=== PATIENT | male | born 1995 | race Caucasian/White ===

== ENCOUNTER 2023-11-18 17:35 | Emergency (ER) | payer OTHER, SELFPAY ==
--- NOTE | ~2023-11-18 | XR_ITS ---
EXAM: XR ribs RT 2V DATE: 11/18/2023 18:21 HISTORY: right posterior lower rib pain after a fall down steps . COMPARISON: None available. FINDINGS: Normal mineralization. Visualized lung parenchyma is clear. Nondisplaced posterior 12th ri b fracture. No other fracture detected. Mild spinal asymmetry. IMPRESSION: Nondisplaced right posterior rib fracture. Reviewed, dictated and finalized at location [facility]. [facility] TECHNICIAN
[2023-11-18 18:01] VITALS: BP 145/75; PULSE 92; RESP 18; TEMP 36.8; O2SAT 99
[2023-11-18 18:03] VITALS: BP 145/75; PULSE 92; RESP 18; TEMP 36.8; O2SAT 99
--- NOTE | 2023-11-18 18:18 | ED.FALL ---
HPI - Fall General Chief Complaint: Back Pain/Injury Stated Complaint: fall, back and rib pain Time Seen by Provider: 11/18/23 18:18 Source: patient Mode of arrival: ambulatory Limitations: no limitations History of Present Illness HPI Narrative: Patient is a 20-year-old male who presents with right mid and lower back pain after falling down 4 steps approximately 3 hours ago. Patient denies hitting head or LOC. Denies any numbness, tingling or weakness to lower extremities. Denies any loss of bowel or bladder. Related Data Allergies Allergy/AdvReac Type Severity Reaction Status Date / Time No Known Allergies Allergy Verified 11/18/23 18:02 Review of Systems Review of Systems: All systems reviewed & are unremarkable except as noted in HPI and below Constitutional: Constitutional: Denies body ache(s), Denies chills, Denies fatigue, Denies fever(s), Denies headache(s), Denies malaise and Denies weakness Eyes: Eyes: Denies blurry vision, Denies irritation and Denies loss of vision ENT: Denies otalgia, Denies headache(s), Denies nasal discharge, Denies sinus pain and Denies sore throat Cardiovascular: Cardiovascular: Denies chest pain, Denies irregular heart rhythm and Denies dyspnea Respiratory: Respiratory: Denies dyspnea Gastrointestinal: Gastrointestinal: Denies abdominal pain, Denies melena, Denies hematochezia, Denies diarrhea, Denies nausea and Denies vomiting Musculoskeletal: Musculoskeletal: Reports back pain, Denies myalgias and Denies arthralgias Integumentary/Breasts: Skin/Breast: Denies pruritus and Denies rash Neurologic: Denies headache(s), Denies loss of vision and Denies weakness Psychiatric: Psychiatric: Reports no additional psychiatric complaints Endocrine: Endocrine: Denies fatigue PMFSH Comments At time of signature, agree with nursing past medical, surgical, social and family history. There is no relevant family history pertinent to the presenting complaint. Exam Const: General: cooperative, healthy appearing, comfortable, no acute distress and well nourished Nutritional Appearance: well nourished Orientation/consciousness: patient oriented x3 Limitations: no limitations HENMT: Head: normal to inspection, normocephalic and atraumatic Ears: hearing grossly normal bilaterally and external ears normal Face/Nose/Sinus: Normal external nose present, normal facial exam and face symmetric Face and sinus: normal facial exam and face symmetric Mouth: Yes lip normal Eyes: General: appearance normal, both eyes and all related structures Alignment and Position: alignment normal and position normal Periorbital: periorbital findings normal Eyelids: eyelids normal Pupils: Equal, round and reactive pupils present EOM: EOMs intact bilaterally Neck: Neck: normal visual inspection, full ROM and supple Chest: Chest palpation & inspection: normal inspection of the chest and tenderness rib right mid-scapular line involving the 10th rib, involving the 11th rib and involving the 12th rib Resp: Effort & Inspection: normal respiratory effort and able to speak in complete sentences Auscultation: clear to auscultation bilaterally Cardio: Rate: regular rate Rhythm: regular rhythm Heart sounds: S1 normal heart sound present and S2 normal heart sound present GI: Inspection: normal to inspection Skin: General skin exam: normal color and no rashes or lesions noted Neuro: General: patient oriented x3 and moves all extremities Cranial nerves: Yes Equal, round and reactive pupils present Speech: normal speech Gait exam (Neuro): Normal gait present Extrem: General: normal to inspection, full ROM and no edema Psych: Appearance: grossly normal and well kempt Mental Status: mental status grossly normal Speech and movement: Normal speech and movement present Affect: normal affect Attitude: cooperative Thought process: Normal thought process present Course Course Emergency Course: Patient is aware of diagno
== END 2023-11-18 18:52 | disposition home or self-care (01) ==
PROVIDERS: Emergency Provider Nurse Practitioner Family
DX: S22.31XA Fracture of one rib, right side, initial encounter for closed fracture (principal); W10.9XXA Fall (on) (from) unspecified stairs and steps, initial encounter
CPT/HCPCS: 71100; 99203; G0463

== ENCOUNTER 2024-03-05 21:00 | Emergency (ER) | payer OTHER, SELFPAY ==
--- NOTE | ~2024-03-05 | CT_ITS ---
CT of the Abdomen and Pelvis: Indication: Abdominal pain Technique: 2.5 mm axial scans were obtained through the abdomen and pelvis following intravenous adm inistration of 100 cc of Omnipaque 350. Dose reduction technique was used on this scan by utilizing a utomated exposure control and iterative reconstruction technique. The dose-length product (DLP) was 5 02.12 mGy-cm. Findings: Scans through the lung bases are unremarkable. The liver, spleen, pancreas, gallbladder, adrenals and kidneys are within normal limits. No evidence of aortic aneurysm. No lymphadenopathy. Probable mild wall thickening of the descending colon, which could reflect infectious/inflammatory co litis. No bowel obstruction. No abscess or free air. There is no evidence to suggest acute appendicit is. Images through the pelvis were performed. Urinary bladder unremarkable. No pelvic mass seen. No ascit es. Impression: Probable infectious/inflammatory colitis of the descending colon. Reviewed, dictated and finalized at [facility]. Impression: Probable infectious/inflammatory colitis of the descending colon.
[2024-03-05 21:15] VITALS: BP 115/75; PULSE 85; RESP 18; TEMP 36.7; O2SAT 98
--- NOTE | 2024-03-05 21:50 | ED.GENADULT ---
HPI - General Adult General Chief complaint: Abdominal Pain Stated complaint: abd pain Time Seen by Provider: 03/05/24 21:05 History of Present Illness HPI narrative: This is a 28-year-old male presenting with 4 hours of constipation the patient says that with the bathroom starting 6:00 p.m.. He then developed sharp pain his lower abdomen that radiated to his groin/penis. No testicle pain. He has not been able have a bowel movement but he has been passing gas. He denies urinary symptoms or concern for STDs. He says that he has had pain similar to this 10 times before and usually resolves on his own he does not see a doctor. Patient says he had some nausea but no vomiting. No abdominal surgeries. Patient is requesting a CT scan to make sure nothing seriously wrong. Related Data Allergies Allergy/AdvReac Type Severity Reaction Status Date / Time No Known Allergies Allergy Verified 11/18/23 18:02 Exam Narrative: APPEARANCE: No apparent distress. Head: atraumatic. EYES: EOMI, NOSE: Atraumatic NECK: Trachea midline RESPIRATORY: No increased rate of breathing, CTAB CARDIOVASCULAR: RRR, ABDOMINAL: Non-distended , soft nontender no guarding or rebound Rectal exam: No blood per rectum, no tenderness to the prostate MUSCULOSKELETAl: No obvious deformities NEURO: Alert. Moving 4/4 extremities SKIN:: Warm, dry. Normal color PSYCHIATRIC: Normal affect Course Vital Signs Vital signs: Vital Signs Temperature 98.1 F 03/05/24 21:15 Pulse Rate 85 03/05/24 21:15 Respiratory Rate 18 03/05/24 21:15 Blood Pressure 115/75 03/05/24 21:15 Pulse Oximetry 98 03/05/24 21:15 Oxygen Delivery Room Air 03/05/24 21:15 Temperature 98.1 F 03/05/24 21:15 Pulse Rate 85 03/05/24 21:15 Respiratory Rate 18 03/05/24 21:15 Blood Pressure 115/75 03/05/24 21:15 Pulse Oximetry 98 03/05/24 21:15 Oxygen Delivery Room Air 03/05/24 21:15 Medical Decision Making [facility] Narrative Medical decision making narrative: -Course: 28-year-old male presenting 4 hours of abdominal pain. Vital signs stable. Abdominal exam benign. Laboratory studies unremarkable. Patient is requesting discharge before his CT is been read by Radiology. He says he will check his results online. Patient left the emergency department. -DDX includes but is not limited to: Constipation, colonic spasm, colitis diverticulitis prostatitis -Co-morbidities complicating care: history of constipation appendectomy -Social determinants of health: works in [employer] -Independent interpretation of studies: labs reviewed CT pending with patient left the emergency department -Interventions: 1 L ns -Shared decision making / Disposition: discharged -RX Metamucil, bentyl Vital Signs Vital Signs: Vital Signs Temperature 98.1 F 03/05/24 21:15 Pulse Rate 85 03/05/24 21:15 Respiratory Rate 18 03/05/24 21:15 Blood Pressure 115/75 03/05/24 21:15 Pulse Oximetry 98 03/05/24 21:15 Oxygen Delivery Room Air 03/05/24 21:15 Temperature 98.1 F 03/05/24 21:15 Pulse Rate 85 03/05/24 21:15 Respiratory Rate 18 03/05/24 21:15 Blood Pressure 115/75 03/05/24 21:15 Pulse Oximetry 98 03/05/24 21:15 Oxygen Delivery Room Air 03/05/24 21:15 Lab Data 03/05/24 22:20 03/05/24 22:20 Labs: Lab Results 03/05/24 03/05/24 Range/Units 22:20 22:25 WBC 12.0 H (4.5-10.0) K/mm3 RBC 5.02 (4.6-6.20) M/mm3 Hgb 15.5 (14.0-18.0) g/dL Hct 44.7 (42.0-52.0) % MCV 89.0 (80-100) fl MCH 30.9 (26-34) pg MCHC 34.7 (32-36) g/dl RDW 12.0 (11.5-14.5) % Plt Count 269 (150-375) k/mm3 MPV 11.0 H (7.4-10.4) fl Immature Gran % (Auto) 0.4 (0-0.5) % Neut % (Auto) 76.7 H (45.5-73.1) % Lymph % (Auto) 15.7 L (18.3-44.2) % Mineral % (Auto) 5.5 (2.6-8.5) % Eos % (Auto) 1.2 (0-4.4) % Baso % (Auto) 0.5 (0.2-1.2) % Lymph # (Auto) 1.88 (0.9-3.2) K
[2024-03-05] MEDS: SODIUM CHLORIDE 0.9% IV 1,000 ML 999 ML IV CONT (22:25)
[2024-03-05 22:28] LABS: Basophils Absolute Auto 0.1 K/mm3 (0.0-0.1); Basophils Percent Auto 0.5 % (0.2-1.2); Eosinophils Absolute Auto 0.1 K/mm3 (0-0.3); Eosinophils Percent Auto 1.2 % (0-4.4); Hematocrit 44.7 % (42.0-52.0); Hemoglobin 15.5 g/dL (14.0-18.0); Immature Granulocyte Absolute 0.05 K/mm3 (0.00-0.031); Immature Granulocyte Percent A 0.4 % (0-0.5); Lymphocytes Absolute Auto 1.88 K/mm3 (0.9-3.2); Lymphocytes Percent Auto 15.7 % (18.3-44.2); Mean Corpuscular HGB Conc 34.7 g/dl (32-36); Mean Corpuscular Hemoglobin 30.9 pg (26-34); Monocytes Absolute Auto 0.7 K/mm3 (0.1-0.6); Monocytes Percent Auto 5.5 % (2.6-8.5); Neutrophils Absolute Auto 9.2 K/mm3 (1.3-6.7); Neutrophils Percent Auto 76.7 % (45.5-73.1); Platelet Count Result 269 k/mm3 (150-375); Red Blood Count 5.02 M/mm3 (4.6-6.20)
[2024-03-05 22:45] LABS: Appearance Urine Clear (Clear); Bilirubin Urine Negative (Negative); Blood Urine Negative (Negative); Color Urine Yellow (Yellow); Glucose Urine UA Negative (Negative); Ketones Urine Trace mg/dL (Negative); Leukocyte Esterase Ur Negative LEU/UL (Negative); Nitrate Urine Negative (Negative); Protein Urine Negative (Negative); Specific Grav Ur 1.023 (1.001-1.035); pH Urine 5.5 (5.0-9.0)
[2024-03-05 22:47] LABS: Add Urine Microscopic? NO
[2024-03-05 22:49] LABS: Alanine Aminotransferase 18 U/L (6-50); Albumin Level 4.6 g/dL (3.5-5.1); Alkaline Phosphatase 69 U/L (38-126); Anion Gap 8 mmol/L (4-12); Aspartate Amino Transferase 21 U/L (17-59); Bilirubin,Total 0.7 mg/dL (0.2-1.3); Blood Urea Nitrogen 18 mg/dL (9-20); Calcium 9.5 mg/dL (8.4-10.2); Carbon Dioxide 25 mmol/L (22-30); Chloride 105 mmol/L (98-107); Estimated CRCL calculation 125 ml/min; Estimated Glomerular Filt Rate > 60; Glucose 105 mg/dL (65-110); Lipase 53 U/L (23-300); Sodium 138 mmol/L (137-145)
== END 2024-03-06 00:02 | disposition home or self-care (01) ==
PROVIDERS: Emergency Provider Emergency Medicine
DX: R10.30 Lower abdominal pain, unspecified (principal)
CPT/HCPCS: 36415; 74177; 80053; 81003; 83690; 85025; 96360; 99284; J7030; Q9967

== ENCOUNTER 2025-04-29 16:30 | Emergency (ER) | payer OTHER, SELFPAY ==
--- OUTSIDE RECORDS SUMMARY | 2025-04-29 16:33 | XMS_ITS | Clinical Summary ---
Author Organization [facility] Care Team Providers Care Weasand Trimmer Name Role Phone Unavailable Primary Care Provider Unavailabl e Social History Tobacco Use Types Packs/Day Years Used Date Smoking Tobacco: Never Assessed Sex and Gender Information Value Date Recorded Sex Assigned at Not on file Legal Sex Male 3:29 PM [employer] DES[employer] Gender Identity Not on file Sexual Orientation Not on file Plan of Treatment Health Maintenance Due Date Last Done Comments Hepatitis C Virus (HCV) Screening 1995 TdaP Immunization 1995 Hepatitis B Immunization (1 of 3 - 19+ 3-dose series) 2014 Influenza Immunization (#1) 2024 SARS-COV-2 Immunization ( - 2023- season) 2024 Respiratory Syncytial Virus (RSV) Immunization (Adult) (1 - 1-dose 75+ series) 2070 Meningococcal Immunization (ACWY) Aged Out No longer eligible based on patient's age to complete this topic Pneumococcal Immunization Combined Aged Out No longer eligible based on patient's age to complete this topic Rotavirus Immunization Aged Out No lo nger eligible based on patient's age to complete this topic
--- OUTSIDE RECORDS SUMMARY | 2025-04-29 16:33 | XMS_ITS | Clinical Summary ---
Author Organization [facility] Address [address] [place] [address] Care Team Providers Care Procurement Agent Name Role Phone Unavailable Primary Care Provider Unavailabl e Social History Tobacco Use Types Packs/Day Years Used Date Smoking Tobacco: Never Assessed Sex and Gender Information Value Date Recorded Sex Assigned at Not on file Legal Sex Male 5:30 PM CDT Gender Identity Not on file Sexual Orientation Not on file Plan of Treatment Health Maintenance Due Date Last Done Comments Annual Physical 1998 Hepatitis C 2013 DTaP, Tdap and Td Vaccines ( 1 - Tdap) 2014 Hepatitis B Vaccines (1 of 3 - 19+ 3-dose series) 2014 COVID-19 Vaccine (2023-2 5 season) 2024 HPV Vaccines Aged Out No longer eligi ble based on patient's age to complete this topic Meningococcal B Vaccine Aged Out No l onger eligible based on patient's age to complete this topic Meningococcal Vaccine Aged Out No radha rand eligible based on patient's age to complete this topic Pneumococcal Vaccine: Pediat rics (0 to 5 Years) and At-Risk Patients (6 to 49 Years) Aged Out No longer eligible b ased on patient's age to complete this topic RSV Immunizations Under 20 Months Aged Out No longer eligible based on patient's age to complete this topic
[2025-04-29 16:40] VITALS: BP 131/82; PULSE 78; RESP 18; TEMP 36.7; O2SAT 100
--- NOTE | 2025-04-29 16:41 | ECG_ITS ---
Test Date: 2025-04-29 16:51:33 Measurements Intervals [place] Rate: 69 P: 66 CT: 137 QRS: 72 QRSD: 96 T: 51 QT: 355 QTc: 382 Interpretive Statements SINUS RHYTHM POSSIBLE LEFT ATRIAL ENLARGEMENT [-0.1mV P WAVE IN V1/V2] No previous ECG available for comparison Electronically Signed On 04-30-2025 16:36:31 CDT by Norah Dominguez
--- NOTE | 2025-04-29 16:48 | ED.GENADULT ---
HPI - General Adult General Chief complaint: Extremity Problem,Nontraumatic Stated complaint: Chest Tightness History of Present Illness HPI narrative: Layo Barber is a 29 y/o male with PMhx of GERD who presents with complaints of chest tightness across anterior chest consistently with intermittent of severity since last night. He states that he started drinking energy drinks again recently and he couldn't sleep last night and states the pain is much different then his acid reflux and it has continued today as well and wanted to just make sure it's not his heart. Tightness severity is about a 6 or 7 severity at rest and reports he was having some shortness of breath with it too. Related Data Allergies Allergy/AdvReac Type Severity Reaction Status Date / Time No Known Allergies Allergy Verified 04/29/25 16:39 Review of Systems Review of Systems: All systems reviewed & are unremarkable except as noted in HPI and below Exam Narrative: GENERAL: Well-appearing, well-nourished, and in no acute distress. HEAD: Normocephalic, atraumatic. EYES: PERRLA and EOMI. ENT: Nares clear, no rhinorrhea or epistaxis. Mucous membranes moist. Oropharynx without tonsillar hypertrophy exudate or other lesions. NECK: Supple. No adenopathy or masses. CHEST: Clear to auscultation. No respiratory distress. No wheezes rales or rhonchi HEART: Regular rate and rhythm. No murmur heard. Normal peripheral pulses. EXTREMITIES: Normal range of motion. No edema. SKIN: Warm, dry, no rash. NEURO: No focal deficits. Alert and oriented x3. PSYCH: Normal mood and affect. Course Course Level of Care: Express Care Visit Vital Signs Vital signs: Vital Signs Temperature 36.7 C 04/29/25 16:40 Pulse Rate 78 04/29/25 16:40 Respiratory Rate 18 04/29/25 16:40 Blood Pressure 131/82 04/29/25 16:40 Pulse Oximetry 100 04/29/25 16:40 Oxygen Delivery Room Air 04/29/25 16:40 Temperature 36.7 C 04/29/25 16:40 Pulse Rate 78 04/29/25 16:40 Respiratory Rate 18 04/29/25 16:40 Blood Pressure 131/82 04/29/25 16:40 Pulse Oximetry 100 04/29/25 16:40 Oxygen Delivery Room Air 04/29/25 16:40 Medical Decision Making [facility] Narrative Medical decision making narrative: 29-year-old presents with chest tightness, pressure in his chest it has been going on since last night. He presents here today because he wants to make sure it is heart. He states he does not feel anything like his normal acid reflux that he has from time to time. His vital signs are stable EKG is normal sinus I explained to him that we are unable to officially clear him and do lab work here and my recommendation is to go to the emergency department for lab work and monitoring to ensure this pain is not related to his heart. discussed transferring to the emergency department with the patient and at 1st he states he would like to go to [facility] however since they do not have Cardiology we did recommend at least a cardiology facility and he would like to go to [facility] in [facility]. He and his significant other also prefer to go private vehicle and this seems ok with his stable vitals and exam I called [facility] ED and got acceptance from the ED attending Dr. Mcdermott for the transfer. Patient then left to go there at 17:11 Medical Records Medical records reviewed: Yes I reviewed the external patient's medical records. Vital Signs Vital Signs: Vital Signs Temperature 36.7 C 04/29/25 16:40 Pulse Rate 78 04/29/25 16:40 Respiratory Rate 18 04/29/25 16:40 Blood Pressure 131/82 04/29/25 16:40 Pulse Oximetry 100 04/29/25 16:40 Oxygen Delivery Room Air 04/29/25 16:40 Temperature 36.7 C 04/29/25 16:40 Pulse Rate 78 04/29/25 16:40 Respiratory Rate 18 04/29/25 16:40 Blood Pressure 131/82 04/29/25 16:40 Pulse Oximetry 100 04/29/25 16:40 Oxygen Delivery Room Air 04/29/25 16:40 vitals reviewed by me ECG Data EKG #1: ECG completion date: 04/29/25 ECG completion time: 16:51 Prior ECG tracings: not available for review Interpretation: Sinus rhythm with possible left atrial enlargement borderline ECG rate 69, P are 137, QRS 96, QT/ QTC 355/ 374, P-R-T axes 66 72 51 Discharge Plan Discharge Clinical Impression: Chest pain Qualifiers: Chest pain type: unspecified Qualified Code(s): R07.9 - Chest pain, unspecified Patient Disposition: Acute Care Hospital Condition: Stable Patient Language: Niuean Prescriptions: No Action baclofen 10 mg tablet 10 mg PO TID 5 Days Qty: 15 0RF lidocaine 5 % adhesive patch,medicated 1 patch topical DAILY Qty: 15 0RF Rx Instructions: leave on most painful area for up to 12 hrs Metamucil 3.4 gram/5.4 gram powder 1 tbsp PO DAILY Qty: 660 0RF Rx Instructions: mix into at least 8 oz of water or juice before administering dicyclomine 20 mg tablet 20 mg PO TID Qty: 30 0RF Follow-up/Referrals: PHYSICIAN,STEM ROLLER [Primary Care Provider] - Time of Disposition: 17:11
== END 2025-04-29 17:10 | disposition short-term general hospital (02) ==
PROVIDERS: Emergency Provider Nurse Practitioner Family
DX: R07.9 Chest pain, unspecified (principal)
CPT/HCPCS: 93005; 99213; G0463